=== PATIENT | female | born 1935 | race Caucasian/White ===

== ENCOUNTER → 2021-04-28 | Outpatient (CLI) | payer MEDICARE | LOC: LAB SHORT 13:03 → LAB 13:03 | DX: N39.0 Urinary tract infection, site not specified (principal); B96.1 Klebsiella pneumoniae [K. pneumoniae] as the cause of diseases classified elsewhere | CPT/HCPCS: 87077; 87086; 87186 ==

== ENCOUNTER → 2021-05-13 | Outpatient (CLI) | payer MEDICARE ==
[2021-05-13 11:40] LABS: Source, Urine Clean Catch
[2021-05-13 13:24] LABS: Appearance, Urine Clear (Clear); Bilirubin, Urine Neg (Neg); Blood, Urine Neg (Neg); Color, Urine Yellow (P-Yellow); Glucose Qualitative, Urine Neg (Neg); Ketones, Urine Neg (Neg); Leukocyte Esterase, Urine Neg (Neg); Nitrite, Urine Neg (Neg); Protein, Urine Neg (Neg); Urobilinogen, Urine NORM (Normal)
== END | disposition home or self-care (01) ==
LOC: LAB 11:38 → LAB SHORT 11:38 → EDSTATUS 16:41
PROVIDERS: Family Medicine
DX: N39.0 Urinary tract infection, site not specified (principal)
CPT/HCPCS: 81003

== ENCOUNTER 2021-06-27 10:38 | Observation (INO) | payer MEDICARE, OTHER ==
[~2021-06-27] VITALS: Ht 162.6 cm; Wt 54.4 kg
[2021-06-27 11:16] LABS: BASOPHILS ABSOLUTE AUTO 0.02 K/mm3 (0.00-0.23); BASOPHILS PERCENT AUTO 0 % (0-2); EOSINOPHILS ABSOLUTE AUTO 0.02 K/mm3 (0.00-0.68); EOSINOPHILS PERCENT AUTO 0 % (0-6); Hematocrit 46.2 % (33.0-51.0); Hemoglobin 15.4 g/dL (11.5-16.0); IMMATURE GRAN ABSOLUTE AUTO 0.01 K/mm3 (0.00-0.10); IMMATURE GRAN PERCENT AUTO 0 % (0-1); LYMPHOCYTES ABSOLUTE AUTO 2.12 K/mm3 (0.84-5.20); LYMPHOCYTES PERCENT AUTO 46 % (21-46); MONOCYTES ABSOLUTE AUTO 0.39 K/mm3 (0.16-1.47); MONOCYTES PERCENT AUTO 9 % (4-13); Mean Corpuscular HGB 30.7 pg (26.0-34.0); Mean Corpuscular HGB Conc 33.3 g/dL (31.5-36.5); Mean Corpuscular Volume 92 fL (80-100); Mean Platelet Volume 10.8 fL (9.1-12.4); NEUTROPHILS ABSOLUTE AUTO 2.02 K/mm3 (1.96-9.15); NEUTROPHILS PERCENT AUTO 44 % (41-73); Platelet Count 160 K/mm3 (150-400); Red Blood Cell Count 5.02 M/mm3 (3.80-5.20); White Blood Cell Count 4.58 K/mm3 (4.00-11.30)
[2021-06-27] MEDS ORDERED: ELIQUIS5 M2 PO (11:24)
[2021-06-27] MEDS ORDERED: LISI5 PO (11:24)
[2021-06-27] MEDS ORDERED: METO50ER PO (11:25)
[2021-06-27] MEDS ORDERED: SPIR25 PO (11:26)
[2021-06-27 11:35] LABS: Alanine Aminotransfer (ALT/SGP 15 U/L (12-78); Albumin, Blood 3.1 g/dL (3.4-5.0); Albumin/Globulin Ratio 0.8 (0.8-1.8); Alk Phos 39 U/L (50-136); Anion Gap 7 mmol/L (6-16); Aspartate Aminotrans (AST/SGOT 28 U/L (12-37); Bilirubin, Total 0.5 mg/dL (0.1-1.0); Blood Urea Nitrogen 13 mg/dL (8-24); CO2, Blood 26 mmol/L (21-32); Calcium, Blood 8.6 mg/dL (8.5-10.1); Chloride, Blood 102 mmol/L (98-108); Globulin, Blood 3.8 g/dL (2.2-4.0); Glomerular Filtration Rate 52 (60-); Glucose, Blood 88 mg/dL (70-99); Sodium, Blood 135 mmol/L (136-145); Total Protein, Blood 6.9 g/dL (6.4-8.2); Troponin I <0.015 ng/mL (0.000-0.040)
[2021-06-27 12:20] LABS: Source, Urine Clean Catch
[2021-06-27 12:23] LABS: Appearance, Urine Cloudy (Clear); Bilirubin, Urine Neg (Neg); Blood, Urine 1+ (Neg); Color, Urine Yellow (P-Yellow); Glucose Qualitative, Urine Neg (Neg); Ketones, Urine 1+ (Neg); Leukocyte Esterase, Urine 1+ (Neg); Nitrite, Urine Pos (Neg); Protein, Urine 2+ (Neg); Specific Gravity, Urine 1.015 (1.003-1.022); Urobilinogen, Urine NORM (Normal)
[2021-06-27 12:49] LABS: Bacteria Many /hpf; Squamous Epithelial Cells Few /hpf (Few)
[2021-06-27 12:50] LABS: Amorphous Light (0-Heavy)
[2021-06-27 13:01] LABS: SARS-Cov-2 (COVID-19) PCR, MMC POSITIVE (NEGATIVE)
--- NOTE | 2021-06-27 17:49 | NUR ---
SHIFT SUMMARY PT IS AO WITH INTERMITTENT CONFUSION AND IS A POOR HISTORIAN. PT DENIES PAIN, N/V, SOB. SATS ARE GREATER THAN 90% ON RA. PT IS ON TELE SINCE ADMIT. PT APPETITE IS GOOD. PT IS ONE ASSIST FOR TRANSFERS AND WORKED WITH OT. PT HAS DIARRHEA THIS SHIFT. PT HAD HEAD MRI SINCE ADMISSION TO UNIT WELL OTHER PROCEDURES IN THE ED. ENHANCED ISOLATION PRECUATIONS MAINTAINED AND PT DID NOT HAVE VISITORS PER PROTOCOL. PT IS IN BED, CALL LIGHT IN REACH, LOW POSITION.
[2021-06-28 04:46] LABS: BASOPHILS ABSOLUTE AUTO 0.01 K/mm3 (0.00-0.23); BASOPHILS PERCENT AUTO 0 % (0-2); EOSINOPHILS ABSOLUTE AUTO 0.01 K/mm3 (0.00-0.68); EOSINOPHILS PERCENT AUTO 0 % (0-6); Hematocrit 40.4 % (33.0-51.0); Hemoglobin 13.7 g/dL (11.5-16.0); IMMATURE GRAN ABSOLUTE AUTO 0.01 K/mm3 (0.00-0.10); IMMATURE GRAN PERCENT AUTO 0 % (0-1); LYMPHOCYTES ABSOLUTE AUTO 1.38 K/mm3 (0.84-5.20); LYMPHOCYTES PERCENT AUTO 34 % (21-46); MONOCYTES ABSOLUTE AUTO 0.34 K/mm3 (0.16-1.47); MONOCYTES PERCENT AUTO 8 % (4-13); Mean Corpuscular HGB 30.4 pg (26.0-34.0); Mean Corpuscular HGB Conc 33.9 g/dL (31.5-36.5); Mean Corpuscular Volume 90 fL (80-100); Mean Platelet Volume 10.1 fL (9.1-12.4); NEUTROPHILS ABSOLUTE AUTO 2.29 K/mm3 (1.96-9.15); NEUTROPHILS PERCENT AUTO 57 % (41-73); Platelet Count 155 K/mm3 (150-400); RDW Coefficient Variation 11.9 % (11.7-14.2); Red Blood Cell Count 4.51 M/mm3 (3.80-5.20); White Blood Cell Count 4.04 K/mm3 (4.00-11.30)
[2021-06-28 06:07] LABS: Alanine Aminotransfer (ALT/SGP 11 U/L (12-78); Albumin, Blood 2.6 g/dL (3.4-5.0); Albumin/Globulin Ratio 0.8 (0.8-1.8); Alk Phos 34 U/L (50-136); Anion Gap 8 mmol/L (6-16); Aspartate Aminotrans (AST/SGOT 19 U/L (12-37); Bilirubin, Total 0.5 mg/dL (0.1-1.0); Blood Urea Nitrogen 13 mg/dL (8-24); CO2, Blood 24 mmol/L (21-32); Calcium, Blood 7.8 mg/dL (8.5-10.1); Chloride, Blood 102 mmol/L (98-108); Creatinine, Blood 0.76 mg/dL (0.40-1.00); Globulin, Blood 3.4 g/dL (2.2-4.0); Glomerular Filtration Rate >60 (60-); Glucose, Blood 86 mg/dL (70-99); Magnesium, Blood 2.1 mg/dL (1.6-2.4); Phosphorus, Blood 2.8 mg/dL (2.5-4.9); Potassium, Blood 3.3 mmol/L (3.5-5.5); Sodium, Blood 134 mmol/L (136-145); Thyroid Stimulating Hormone 0.594 uIU/mL (0.360-4.800)
--- NOTE | 2021-06-28 15:40 | NUR ---
Echocardiogram completed.
--- NOTE | 2021-06-28 16:18 | NUR ---
SHIFT SUMMARY PT IS AO AND PLEASANT. PT DENIES PAIN, N/V, SOB. ENHANCED ISOLATION PRECAUTIONS MAINTAINED T/O SHIFT. PT IS ON RA WITH SATS GREATER THAN 90%. PT HAS LOW GRADE FEVER THIS SHIFT. PT APPETITE IS GOOD. PT AMBULATES TO BATHROOM WITH 1 ASSIST. PT IS IN BED, CALL LIGHT IN REACH, LOW POSITION.
[2021-06-29 04:58] LABS: Albumin, Blood 2.6 g/dL (3.4-5.0); Anion Gap 5 mmol/L (6-16); Blood Urea Nitrogen 15 mg/dL (8-24); Bun/Creatinine Ratio 19.2 (12.0-20.0); CO2, Blood 26 mmol/L (21-32); Calcium, Blood 8.2 mg/dL (8.5-10.1); Chloride, Blood 107 mmol/L (98-108); Creatinine, Blood 0.78 mg/dL (0.40-1.00); Glomerular Filtration Rate >60 (60-); Glucose, Blood 94 mg/dL (70-99); Magnesium, Blood 2.1 mg/dL (1.6-2.4); Sodium, Blood 138 mmol/L (136-145)
[2021-06-29] MEDS ORDERED: LEVFLO500 PO (10:16)
--- NOTE | 2021-06-29 16:13 | NUR ---
DISCHARGE NOTE THIS RN REMOVED IV PER DOCUMENTATION. THIS RN REVIEWED DC INSTRUCTIONS WITH PT WHO VERBALIZED UNDERSTANDING AND ALSO DISCUSSED MEDICATIONS VIA PHONE WITH CAREGIVER, TANI. THIS RN ASSISTED PT WITH DRESSING IN HOME CLOTHING. BELONGINGS GATHERED FROM ROOM. PT ASSISTED INTO WHEELCHAIR BY THIS RN AND WHEELED OFF UNIT TO PRIVATE VEHICLE WITH MOTTLER MACHINE FEEDER AND BELONGINGS PRESENT.
== END 2021-06-29 16:06 | disposition home health service (06) ==
LOC: ER 10:38 → MEDS 14:52 → ER 14:52 → MEDS 14:52
PROVIDERS: Emergency Medicine; ADMIT Family Medicine
DX: R55 Syncope and collapse (principal); U07.1 COVID-19; N39.0 Urinary tract infection, site not specified; I44.0 Atrioventricular block, first degree; E87.6 Hypokalemia; B96.1 Klebsiella pneumoniae [K. pneumoniae] as the cause of diseases classified elsewhere; I11.0 Hypertensive heart disease with heart failure; I50.9 Heart failure, unspecified; I48.91 Unspecified atrial fibrillation; Z79.01 Long term (current) use of anticoagulants
CPT/HCPCS: 36415; 70450; 70551; 71045; 72125; 80053; 80069; 81001; 82607; 82746; 83735; 83880; 84100; 84443; 84484; 85025; 87077; 87086; 87186; 90686; 93005; 93010; 93306; 93880; 94762; 96365; 97110; 97112; 97116; 97162; 97166; 97535; 99285-25; A9270; G0378; J0696; J3480; J7040; J7050; M0243; Q0243; U0004